=== PATIENT | female | born 1995 | race Two or more races ===

== ENCOUNTER → 2024-06-16 | Outpatient (REF) | payer OTHER | LOC: M PLALAB 13:42 | PROVIDERS: ATTEND Nurse Practitioner Family | DX: Z34.80 Encounter for supervision of other normal pregnancy, unspecified trimester (principal) ==

== ENCOUNTER → 2024-06-16 | Outpatient (CLI) | payer OTHER ==
[2024-06-16 15:54] LABS: HEMATOCRIT 37.3 % (36.0-47.0); HEMOGLOBIN 12.2 g/dl (12.0-15.5); MEAN CORPUSCULAR HEMOGLOBIN 28.6 pg (27.0-33.0); MEAN CORPUSCULAR HGB CONC 32.7 g/dl (32.0-36.5); MEAN CORPUSCULAR VOLUME 87.6 fl (80.0-96.0); PLATELET COUNT, AUTOMATED 282 10^3/uL (150-450); RED BLOOD COUNT 4.26 10^6/uL (4.00-5.40); WHITE BLOOD COUNT 11.1 10^3/uL (4.0-10.0)
[2024-06-16 16:49] LABS: Trichomonas vaginalis (AMP) NOT DETECTED (NEGATIVE)
[2024-06-16 16:51] LABS: HIV 1&2 SCREEN NEGATIVE (NEGATIVE)
[2024-06-16 16:58] LABS: HEPATITIS C VIRUS ABY INDEX 0.07 INDEX (<0.8)
[2024-06-16 17:12] LABS: GC DNA AMPLIFICATION NEGATIVE (NEGATIVE)
== END ==
LOC: M PLALAB 14:20
PROVIDERS: ATTEND Nurse Practitioner Family
DX: Z34.80 Encounter for supervision of other normal pregnancy, unspecified trimester (principal)

== ENCOUNTER → 2024-10-09 | Outpatient (CLI) | payer OTHER ==
[2024-10-09 13:08] LABS: PLATELET COUNT, AUTOMATED 272 10^3/uL (150-450)
[2024-10-09 13:12] LABS: GLUCOSE CHALLENGE TEST 1 HOUR 105 MG/DL (LESS THAN 140)
[2024-10-09 13:47] LABS: HIV 1&2 SCREEN NEGATIVE (NEGATIVE)
[2024-10-09 13:55] LABS: HEPATITIS C VIRUS ABY INDEX < 0.02 INDEX (<0.8)
[2024-10-09 14:47] LABS: Trichomonas vaginalis (AMP) NOT DETECTED (NEGATIVE)
[2024-10-09 15:11] LABS: GC DNA AMPLIFICATION NEGATIVE (NEGATIVE)
== END ==
LOC: M PLALAB 09:37
PROVIDERS: ATTEND Obstetrics & Gynecology
DX: Z33.1 Pregnant state, incidental (principal)

== ENCOUNTER → 2024-12-17 | Outpatient (REF) | payer OTHER | LOC: M SFHCWAGY 13:21 | PROVIDERS: ATTEND Obstetrics & Gynecology | DX: Z34.80 Encounter for supervision of other normal pregnancy, unspecified trimester (principal) ==

== ENCOUNTER 2025-01-06 08:01 | Inpatient (IN) | payer OTHER ==
[2025-01-06] VITALS (21 sets, daily range): BP systolic 103–154; BP diastolic 61–93; O2SAT 98–99
[~2025-01-06] VITALS: Ht 157.5 cm; Wt 71.8 kg
[2025-01-06] MEDS ORDERED: PNV1TABL16 PO (08:13)
[2025-01-06] MEDS ORDERED: HOME MED LIST COMPLETE! XX SCH (08:15)
[2025-01-06] MEDS ORDERED: VALA500T5 PO (08:15)
[2025-01-06] MEDS ORDERED: BUPR150T12 PO (08:15)
[2025-01-06] MEDS ORDERED: OXYTOCIN DRIP 30 UNITS in IV 1 EA IV PRN (09:00)
[2025-01-06] MEDS ORDERED: miSOPROStol 50 MCG 1/2 TABLET SL SCH (09:00)
[2025-01-06] MEDS ORDERED: LIDOCAINE 1% MDV 20 ML VIAL INFIL PRN (09:00)
[2025-01-06 09:26] LABS: PLATELET COUNT, AUTOMATED 239 10^3/uL (150-450)
[2025-01-06] MEDS: OXYTOCIN DRIP 30 UNITS in IV 1 EA IV SCH (10:31)
[2025-01-06] MEDS: LR 1,000 ML IV SCH (10:31)
[2025-01-06 10:33] LABS: HIV 1&2 SCREEN NEGATIVE (NEGATIVE)
[2025-01-06 10:50] LABS: HEPATITIS C VIRUS ABY INDEX < 0.02 INDEX (<0.8)
[2025-01-06] MEDS ORDERED: RHOGAM 300MCG (1500IU) INJ IM SCH (16:25)
[2025-01-06] MEDS ORDERED: ACETAMINOPHEN 325 MG TAB PO PRN (16:25)
[2025-01-06] MEDS ORDERED: DOCUSATE SODIUM 100 MG CAPSULE PO PRN (16:25)
[2025-01-06] MEDS ORDERED: IBUPROFEN 600 MG TAB PO PRN (16:25)
[2025-01-06] MEDS ORDERED: DIBUCAINE 1% OINTMENT 30 GM TOP PRN (16:25)
[2025-01-06] MEDS ORDERED: METHYLERGONOVINE MALEATE 0.2 MG TAB PO PRN (16:25)
[2025-01-06] MEDS: IBUPROFEN 800 MG TAB PO PRN (23:54)
[2025-01-07] MEDS: ACETAMINOPHEN 500 MG TAB PO PRN (05:43)
[2025-01-07 05:54] VITALS: BP 115/64; O2SAT 97
[2025-01-07] MEDS: buPROPion **XL** 150 MG TABLET PO SCH (10:02)
[2025-01-07] MEDS: PRENATAL VITAMINS CHEWABLE TABLET PO SCH (10:02)
[2025-01-07 18:00] VITALS: BP 126/75; O2SAT 98
[2025-01-08 06:00] VITALS: BP 117/66; O2SAT 99
[2025-01-08] MEDS ORDERED: MEASLES,MUMPS,RUBELLA VACCINE INJ (MMR-II) SC.IMMUN ONE (09:00)
== END 2025-01-08 11:20 | disposition home or self-care (01) | DRG 560 ==
LOC: M LDI 08:01 → M OBS 18:14
PROVIDERS: ADMIT Specialist; ATTEND Specialist
PROC: 10E0XZZ Delivery of Products of Conception, External Approach (ICD-10-PCS; principal; 2025-01-06)
PROC: 10907ZC Drainage of Amniotic Fluid, Therapeutic from Products of Conception, Via Natural or Artificial Opening (ICD-10-PCS; 2025-01-06)
PROC: 3E033VJ Introduction of Other Hormone into Peripheral Vein, Percutaneous Approach (ICD-10-PCS; 2025-01-06)
DX: O80 Encounter for full-term uncomplicated delivery (principal); Z37.0 Single live birth; Z3A.39 39 weeks gestation of pregnancy